=== PATIENT | male | born 1965 | race Caucasian/White ===

== ENCOUNTER 2016-05-23 16:06 | Emergency (ER) | payer OTHER ==
[2016-05-23 16:15] VITALS: BMI 29.7
[2016-05-23 17:06] VITALS: RESP 19; TEMP 98
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
[2016-05-23] MEDS ORDERED: Naproxen 550 mg Tab PO STA (17:42)
[2016-05-23 18:20] VITALS: BP 140/95; PULSE 74; O2SAT 100
--- NOTE | 2016-05-24 10:15 | RAD ---
PROCEDURE: Lumbar spine dated 05/23/2016. AP lateral and both obliques views of the lumbar spine performed. HISTORY: pain COMPARISON: No prior. FINDINGS: BONES: No evidence of acute compression fractures no retropulsed fragments. . Vertebral bodies exhibit relatively normal stature. Vertebral bodies and facets normally aligned. Disc space heights maintained. Small marginal anterior osteophyte formation seen at the L 3 L4 and to a lesser degree L2-L3 levels. . DISC SPACES: Disc space heights maintained. Small marginal anterior osteophyte formation seen at the L3-L4 with smaller anterolateral osteophytes noted at the L4-L5, L5-S1 hand L L2-L3 levels OTHER FINDINGS: None. IMPRESSION: No acute fractures. Mild multilevel anterolateral osteophyte formation most pronounced at the L 3 L4 level.
== END 2016-05-23 18:22 | disposition home or self-care (01) ==
LOC: ED 16:06
DX: S39.012A Strain of muscle, fascia and tendon of lower back, initial encounter (principal); V49.9XXS Car occupant (driver) (passenger) injured in unspecified traffic accident, sequela; I10 Essential (primary) hypertension